=== PATIENT | male | born 1980 | race Two or more races ===

== ENCOUNTER 2021-12-22 16:18 | Outpatient (REF) | payer MEDICAID, OTHER, SELFPAY ==
--- NOTE | ~2021-12-22 | XR_ITS ---
EXAMINATION: XR LUMBOSACRAL SPINE CLINICAL INFORMATION: Sciatica COMPARISON: None TECHNIQUE: Three views of the lumbosacral spine. FINDINGS: Bone alignment is normal. No fracture or dislocation is seen. There is mild degenerative spondylosis at T12-L1 and L3-L4. Disc spaces are normal. 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 There are bilateral renal stones. The largest measures 4 mm in the lower pole of the left kidney. XR/XR lumbar spine 2-3V IMPRESSION: Mild degenerative changes. Bilateral renal stones.
== END 2021-12-22 16:19 | disposition home or self-care (01) ==
LOC: HO.XRAY 16:18
PROVIDERS: PCP Family Medicine; Visit Provider Family Medicine
DX: M54.32 Sciatica, left side (principal)
CPT/HCPCS: 72100

== ENCOUNTER 2022-08-21 09:08 | Outpatient (REF) | payer OTHER, SELFPAY ==
[2022-08-21 10:12] LABS: Cholesterol 161 mg/dL; Glucose Fasting 87 mg/dL (60-99); HDL Cholesterol 50 mg/dL; LDL Cholesterol Calculated 85 mg/dl; Triglycerides 131 mg/dL
== END 2022-08-21 09:09 | disposition home or self-care (01) ==
LOC: HO.LAB 09:08
PROVIDERS: PCP Family Medicine; Visit Provider Family Medicine
DX: Z82.49 Family history of ischemic heart disease and other diseases of the circulatory system (principal)
CPT/HCPCS: 36415; 80061; 82947